=== PATIENT | female | born 1955 | race Two or more races ===

== ENCOUNTER → 2024-10-29 | Outpatient (CLI) | payer OTHER, MEDICAID, SELFPAY ==
--- NOTE | 2024-10-29 14:56 | XR_ITS ---
Examination: Duplex scan of the lower extremity, unilateral left Date and time of exam: October 29, 2024 1545 hours INDICATIONS: Patient fell 6 days ago with injury to the lower leg, lower leg pain and bruising and swelling post injury Technique: Duplex scan of the extremity veins using B-mode/grayscale imaging and Doppler spectral analysis and color flow Attention is directed to internal echogenicity, compression and augmentation involving these veins, color flow assessment, spectral analysis Findings: Major deep venous structures in the extremity demonstrate normal course and caliber. There is no evidence of deep vein thrombosis. Normal color flow and spectral analysis Impression: Negative for DVT.. Soft tissue mass anterior knee 8.0 x 1.3 x 7.5 cm most consistent with hematoma
--- NOTE | 2024-10-29 15:13 | XR_ITS ---
Examination: Tibia-Fibula, left , 2 views Technique: Tibia-fibula AP lateral 2 views Date and time of exam: October 29, 2024 1827 hours INDICATIONS: Patient fell October 22, 2024 with injury to the lower leg, lower leg pain. FINDINGS: Significant osteopenia. No fracture or dislocation No opaque foreign body IMPRESSION: No fracture or dislocation
--- NOTE | 2024-10-29 15:13 | XR_ITS ---
Examination: Knee, left , 3 views Technique: Knee AP, lateral, oblique 3 views Date and time of exam: October 29, 2024 1527 hours INDICATIONS: Patient fell October 22, 2024 with injury to the knee, knee pain. FINDINGS: Significant osteopenia Moderate narrowing medial joint space Small knee effusion No fracture or dislocation IMPRESSION: No fracture
== END | disposition home or self-care (01) ==
PROVIDERS: PCP Family Medicine; Referring Provider Internal Medicine; Visit Provider Internal Medicine
DX: S89.92XA Unspecified injury of left lower leg, initial encounter (principal); W19.XXXA Unspecified fall, initial encounter; R22.42 Localized swelling, mass and lump, left lower limb
CPT/HCPCS: 73562; 73590; 93971

== ENCOUNTER → 2024-11-19 | Outpatient (CLI) | payer OTHER, MEDICAID, SELFPAY ==
[2024-11-19 08:44] LABS: Basophils % (Auto) 0 % (0-2.5); Eosinophils # (Auto) 0.1 Thou/mm3 (0.0-0.5); Eosinophils % (Auto) 1 % (0-10); Hematocrit 40.9 % (36.0-46.0); Hemoglobin 13.8 g/dL (12.0-16.0); Immature Granulocytes % (Auto) 0 % (0-0); Immature Granulocytes Auto 0.04 Thou/mm3 (0.00-0.00); Lymphocytes # (Auto) 2.3 Thou/mm3 (1.0-4.8); Lymphocytes % (Auto) 23 % (10-50); Mean Corpuscular HGB Conc 33.7 g/dl (31.0-37.0); Mean Corpuscular Hemoglobin 28.6 pg (25.0-35.0); Mean Corpuscular Volume 85 fL (80-100); Monocytes # (Auto) 0.6 Thou/mm3 (0.0-0.8); Monocytes % (Auto) 6 % (0-12); Neutrophils # (Auto) 6.9 Thou/mm3 (1.8-7.7); Neutrophils % (Auto) 69 % (37-80); Nucleated Red Blood Cell % 0 /100 WBC (0); Platelet Count 303 Thou/mm3 (140-440); RDW Standard Deviation 42.7 fL (36.4-46.3); Red Blood Count 4.83 Miln/mm3 (4.00-5.20); White Blood Count 9.9 Thou/mm3 (3.6-11.0)
[2024-11-19 08:47] LABS: Carcinoembryonic Antigen 11.1 ng/mL (0.0-5.0)
[2024-11-19 09:02] LABS: Alanine Aminotransferase 52 U/L (10-49); Albumin, Serum 4.3 gm/dL (3.4-4.8); Alkaline Phosphatase 62 U/L (46-116); Anion Gap 7 (7-16); Aspartate Amino Transferase 27 U/L (0-34); BUN/Creatinine Ratio 50 Ratio (12-20); Bilirubin,Total 0.5 mg/dL (0.3-1.2); Blood Urea Nitrogen 25 mg/dL (9-23); Calcium 9.5 mg/dL (8.3-10.6); Calcium (Corrected) 9.5 mg/dL (8.5-10.1); Carbon Dioxide 30.9 mMol/L (20.0-31.0); Chloride 103 mMol/L (98-107); Creatinine (Component) 0.5 mg/dL (0.6-1.3); Globulin 2.2 gm/dL (2.3-3.5); Glucose 92 mg/dL (74-106); Osmolality,Calculated 285 (275-295); Potassium 4.2 mMol/L (3.4-5.1); Sodium 141 mMol/L (136-145); Total Protein 6.5 gm/dL (5.7-8.2); eGFR > 60 See Note
== END | disposition home or self-care (01) ==
LOC: SCTO 07:26
PROVIDERS: PCP Family Medicine; Referring Provider Nurse Practitioner Family; Visit Provider Nurse Practitioner Family
DX: C50.911 Malignant neoplasm of unspecified site of right female breast (principal); R53.83 Other fatigue
CPT/HCPCS: 36415; 80053; 82378; 85025

== ENCOUNTER 2024-11-26 08:54 | Outpatient (RCR) | payer OTHER, SELFPAY | END 2024-11-27 23:59 | disposition home or self-care (01) | LOC: SCTC 08:54 | PROVIDERS: PCP Family Medicine; Referring Provider Obstetrics & Gynecology; Visit Provider Nurse Practitioner Family | DX: Z08 Encounter for follow-up examination after completed treatment for malignant neoplasm (principal); Z85.3 Personal history of malignant neoplasm of breast | CPT/HCPCS: 99212; G0463 ==

== ENCOUNTER → 2024-12-11 | Outpatient (CLI) | payer OTHER, SELFPAY ==
[2024-12-11 10:17] LABS: Basophils % (Auto) 1 % (0-2.5); Eosinophils # (Auto) 0.2 Thou/mm3 (0.0-0.5); Eosinophils % (Auto) 4 % (0-10); Hematocrit 40.4 % (36.0-46.0); Hemoglobin 13.9 g/dL (12.0-16.0); Immature Granulocytes % (Auto) 0 % (0-0); Immature Granulocytes Auto 0.01 Thou/mm3 (0.00-0.00); Lymphocytes # (Auto) 1.5 Thou/mm3 (1.0-4.8); Lymphocytes % (Auto) 36 % (10-50); Mean Corpuscular HGB Conc 34.4 g/dl (31.0-37.0); Mean Corpuscular Volume 84 fL (80-100); Monocytes # (Auto) 0.4 Thou/mm3 (0.0-0.8); Monocytes % (Auto) 10 % (0-12); Neutrophils % (Auto) 49 % (37-80); Nucleated Red Blood Cell % 0 /100 WBC (0); Platelet Count 236 Thou/mm3 (140-440); RDW Standard Deviation 42.1 fL (36.4-46.3); White Blood Count 4.1 Thou/mm3 (3.6-11.0)
[2024-12-11 10:34] LABS: Alanine Aminotransferase 36 U/L (10-49); Albumin, Serum 4.2 gm/dL (3.4-4.8); Albumin/Globulin Ratio 1.9 (1.2-2.2); Alkaline Phosphatase 73 U/L (46-116); Anion Gap 5 (7-16); Aspartate Amino Transferase 30 U/L (0-34); BUN/Creatinine Ratio 20 Ratio (12-20); Bilirubin,Total 0.5 mg/dL (0.3-1.2); Blood Urea Nitrogen 12 mg/dL (9-23); Calcium 9.8 mg/dL (8.3-10.6); Calcium (Corrected) 9.8 mg/dL (8.5-10.1); Carbon Dioxide 30.8 mMol/L (20.0-31.0); Cardiac Risk Estimate 4.1 RATIO (3.7-5.6); Chloride 108 mMol/L (98-107); Cholesterol 190 mg/dL (132-200); Creatinine (Component) 0.6 mg/dL (0.6-1.3); Globulin 2.2 gm/dL (2.3-3.5); Glucose 97 mg/dL (74-106); HDL Cholesterol 46 mg/dL (40-60); LDL Cholesterol,Calculated 111 mg/dL (0-130); Osmolality,Calculated 286 (275-295); Potassium 4.2 mMol/L (3.4-5.1); Sodium 144 mMol/L (136-145); Total Protein 6.4 gm/dL (5.7-8.2); Triglycerides 166 mg/dL (30-150); eGFR > 60 See Note
[2024-12-11 10:50] LABS: CA 15-3 16.3 U/mL (<32.4); Carcinoembryonic Antigen 10.8 ng/mL (0.0-5.0)
== END | disposition home or self-care (01) ==
LOC: SCTO 08:50
PROVIDERS: PCP Family Medicine; Referring Provider Nurse Practitioner Family; Visit Provider Nurse Practitioner Family
DX: C50.911 Malignant neoplasm of unspecified site of right female breast (principal); E78.5 Hyperlipidemia, unspecified; R53.83 Other fatigue
CPT/HCPCS: 36415; 80053; 80061; 82378; 85025; 86300

== ENCOUNTER 2024-12-16 08:32 | Outpatient (RCR) | payer OTHER, SELFPAY | END 2024-12-25 23:59 | disposition home or self-care (01) | LOC: SCTC 08:32 | PROVIDERS: PCP Family Medicine; Referring Provider Family Medicine; Visit Provider Nurse Practitioner Family | DX: Z08 Encounter for follow-up examination after completed treatment for malignant neoplasm (principal); Z85.3 Personal history of malignant neoplasm of breast | CPT/HCPCS: 99212; G0463 ==

== ENCOUNTER → 2025-03-08 | Outpatient (CLI) | payer OTHER, MEDICAID, SELFPAY ==
[2025-03-08 08:36] LABS: Basophils % (Auto) 1 % (0-2.5); Eosinophils # (Auto) 0.2 Thou/mm3 (0.0-0.5); Eosinophils % (Auto) 4 % (0-10); Hematocrit 42.4 % (36.0-46.0); Hemoglobin 14.4 g/dL (12.0-16.0); Immature Granulocytes % (Auto) 0 % (0-0); Immature Granulocytes Auto 0.01 Thou/mm3 (0.00-0.00); Lymphocytes # (Auto) 1.4 Thou/mm3 (1.0-4.8); Lymphocytes % (Auto) 33 % (10-50); Mean Corpuscular Hemoglobin 28.6 pg (25.0-35.0); Mean Corpuscular Volume 84 fL (80-100); Monocytes # (Auto) 0.3 Thou/mm3 (0.0-0.8); Monocytes % (Auto) 8 % (0-12); Neutrophils # (Auto) 2.2 Thou/mm3 (1.8-7.7); Neutrophils % (Auto) 54 % (37-80); Nucleated Red Blood Cell % 0 /100 WBC (0); Platelet Count 239 Thou/mm3 (140-440); Red Blood Count 5.04 Miln/mm3 (4.00-5.20); White Blood Count 4.1 Thou/mm3 (3.6-11.0)
[2025-03-08 08:48] LABS: Alanine Aminotransferase 23 U/L (10-49); Albumin, Serum 4.4 gm/dL (3.4-4.8); Albumin/Globulin Ratio 1.7 (1.2-2.2); Alkaline Phosphatase 70 U/L (46-116); Anion Gap 5 (7-16); Aspartate Amino Transferase 23 U/L (0-34); BUN/Creatinine Ratio 17 Ratio (12-20); Bilirubin,Total 0.5 mg/dL (0.3-1.2); Blood Urea Nitrogen 10 mg/dL (9-23); Calcium 9.5 mg/dL (8.3-10.6); Calcium (Corrected) 9.5 mg/dL (8.5-10.1); Carbon Dioxide 30.2 mMol/L (20.0-31.0); Chloride 104 mMol/L (98-107); Creatinine (Component) 0.6 mg/dL (0.6-1.3); Globulin 2.6 gm/dL (2.3-3.5); Glucose 104 mg/dL (74-106); Osmolality,Calculated 276 (275-295); Potassium 3.8 mMol/L (3.4-5.1); Sodium 139 mMol/L (136-145); eGFR > 60 See Note
[2025-03-08 09:06] LABS: CA 15-3 20.3 U/mL (<32.4); Carcinoembryonic Antigen 13.3 ng/mL (0.0-5.0)
== END | disposition home or self-care (01) ==
LOC: SCTO 07:21
PROVIDERS: PCP Family Medicine; Referring Provider Nurse Practitioner Family; Visit Provider Nurse Practitioner Family
DX: C50.911 Malignant neoplasm of unspecified site of right female breast (principal); R53.83 Other fatigue
CPT/HCPCS: 36415; 80053; 82378; 85025; 86300

== ENCOUNTER 2025-03-15 15:37 | Outpatient (RCR) | payer OTHER, SELFPAY | END 2025-03-27 23:59 | disposition home or self-care (01) | LOC: SCTC 15:37 | PROVIDERS: PCP Family Medicine; Referring Provider Family Medicine; Visit Provider Nurse Practitioner Family | DX: R97.8 Other abnormal tumor markers (principal); N64.59 Other signs and symptoms in breast; Z90.11 Acquired absence of right breast and nipple; Z85.3 Personal history of malignant neoplasm of breast | CPT/HCPCS: 99212; G0463 ==

== ENCOUNTER → 2025-04-20 | Outpatient (CLI) | payer OTHER, SELFPAY ==
--- NOTE | 2025-04-20 10:15 | XR_ITS ---
EXAMINATION: PET/CT FUSION SKULL TO THIGH EXAM DATE AND TIME: April 20, 2025 1119 hours INDICATIONS: Diagnosis breast cancer, staging. CTDI:vol (mGy) 5.80 DLP: (mGycm) 530.11 PROCEDURE: 15 mCi FDG was administered intravenously To allow for distribution and uptake of radiotracer, the patient was allowed to rest quietly in a shielded room. Imaging was performed on an integrated 16-slice PET/CT scanner, with scanning from the skull base to the mid thigh. Serum blood glucose at the time of the injection was measured 101 mg/dL. CT scanning was performed without oral or intravenous contrast material. FINDINGS: Head and Neck: There is no katerin hypermetabolism in the neck. The visualized portions of the brain are normal in appearance on CT. Chest: Right mastectomy, no hypermetabolic breast chest wall or axillary lesions Abdomen and Pelvis: There is no katerin hypermetabolism in retroperitoneal or pelvic chains. The spleen is normal in size and FDG avidity. Musculoskeletal: Marrow uptake is within normal range. IMPRESSION: No findings of metastatic disease
== END | disposition home or self-care (01) ==
PROVIDERS: Referring Provider Nurse Practitioner Family; Visit Provider Nurse Practitioner Family
DX: C50.911 Malignant neoplasm of unspecified site of right female breast (principal)
CPT/HCPCS: 78815; A9552

== ENCOUNTER → 2025-04-24 | Outpatient (CLI) | payer OTHER, SELFPAY ==
[2025-04-15 09:38] LABS: Basophils % (Auto) 0 % (0-2.5); Eosinophils # (Auto) 0.1 Thou/mm3 (0.0-0.5); Eosinophils % (Auto) 2 % (0-10); Hematocrit 45.5 % (36.0-46.0); Immature Granulocytes % (Auto) 0 % (0-0); Immature Granulocytes Auto 0.01 Thou/mm3 (0.00-0.00); Lymphocytes # (Auto) 2.2 Thou/mm3 (1.0-4.8); Lymphocytes % (Auto) 29 % (10-50); Mean Corpuscular Hemoglobin 28.5 pg (25.0-35.0); Mean Corpuscular Volume 87 fL (80-100); Monocytes # (Auto) 0.8 Thou/mm3 (0.0-0.8); Monocytes % (Auto) 10 % (0-12); Neutrophils # (Auto) 4.4 Thou/mm3 (1.8-7.7); Neutrophils % (Auto) 58 % (37-80); Nucleated Red Blood Cell % 0 /100 WBC (0); Platelet Count 259 Thou/mm3 (140-440); RDW Standard Deviation 45.7 fL (36.4-46.3); Red Blood Count 5.26 Miln/mm3 (4.00-5.20); White Blood Count 7.6 Thou/mm3 (3.6-11.0)
[2025-04-15 09:51] LABS: Alanine Aminotransferase 41 U/L (10-49); Albumin/Globulin Ratio 1.7 (1.2-2.2); Alkaline Phosphatase 67 U/L (46-116); Anion Gap 6 (7-16); Aspartate Amino Transferase 28 U/L (0-34); BUN/Creatinine Ratio 17 Ratio (12-20); Bilirubin,Total 0.5 mg/dL (0.3-1.2); Blood Urea Nitrogen 12 mg/dL (9-23); Carbon Dioxide 31.3 mMol/L (20.0-31.0); Chloride 105 mMol/L (98-107); Creatinine (Component) 0.7 mg/dL (0.6-1.3); Globulin 2.3 gm/dL (2.3-3.5); Glucose 85 mg/dL (74-106); Osmolality,Calculated 281 (275-295); Potassium 4.4 mMol/L (3.4-5.1); Sodium 142 mMol/L (136-145); Total Protein 6.3 gm/dL (5.7-8.2); eGFR > 60 See Note
--- NOTE | 2025-04-24 12:00 | XR_ITS ---
Examination: MRI bilateral breast with and without contrast Date and time: April 24, 2025, 12 0 5:00 PM INDICATIONS: Diagnosis malignant neoplasm of unspecified site right female breast, right breast cancer diagnosis 2004 total mastectomy TECHNIQUE AND FINDINGS: Bilateral breast MRI images pre and post 14 cc gadolinium intravenous Scattered areas of fibroglandular density. 12 mm focus of architectural distortion medial right breast near the chest wall, Minimal background breast enhancement Right mastectomy. No chest wall mass. No pathologic lymphadenopathy IMPRESSION: BI-RADS Category 0: Incomplete: Need additional imaging evaluation 12 mm focus architectural distortion medial right breast near the chest wall. Recommend bilateral breast sonography follow-up including specific attention to the medial aspect right breast with the radiologist in attendance Also recommend attempt at Limited right diagnostic mammography follow-up
== END | disposition home or self-care (01) ==
LOC: SMRI 11:24
PROVIDERS: PCP Family Medicine; Referring Provider Nurse Practitioner Family; Visit Provider Nurse Practitioner Family
DX: R92.8 Other abnormal and inconclusive findings on diagnostic imaging of breast (principal); C50.911 Malignant neoplasm of unspecified site of right female breast
CPT/HCPCS: 36415; 77049; 80053; 85025; A9579; C8908

== ENCOUNTER 2025-05-04 11:03 | Outpatient (RCR) | payer OTHER, SELFPAY | END 2025-05-27 23:59 | disposition home or self-care (01) | LOC: SCTC 11:03 | PROVIDERS: PCP Family Medicine; Referring Provider Obstetrics & Gynecology; Visit Provider Nurse Practitioner Family | DX: Z08 Encounter for follow-up examination after completed treatment for malignant neoplasm (principal); Z85.3 Personal history of malignant neoplasm of breast; Z90.11 Acquired absence of right breast and nipple; R53.83 Other fatigue; Z86.0100 Personal history of colon polyps, unspecified | CPT/HCPCS: 99212; G0463 ==

== ENCOUNTER → 2025-05-17 | Outpatient (CLI) | payer OTHER, SELFPAY ==
[2025-05-17 12:06] LABS: Basophils # (Auto) 0.0 Thou/mm3 (0.0-0.2); Basophils % (Auto) 0 % (0-2.5); Eosinophils # (Auto) 0.1 Thou/mm3 (0.0-0.5); Eosinophils % (Auto) 3 % (0-10); Hematocrit 40.3 % (36.0-46.0); Hemoglobin 14.1 g/dL (12.0-16.0); Immature Granulocytes Auto 0.02 Thou/mm3 (0.00-0.00); Immature Reticulocyte Fraction 11.2 % (3.0-15.9); Lymphocytes # (Auto) 1.4 Thou/mm3 (1.0-4.8); Lymphocytes % (Auto) 29 % (10-50); Mean Corpuscular HGB Conc 35.0 g/dl (31.0-37.0); Mean Corpuscular Hemoglobin 29.2 pg (25.0-35.0); Mean Corpuscular Volume 83 fL (80-100); Monocytes # (Auto) 0.3 Thou/mm3 (0.0-0.8); Monocytes % (Auto) 7 % (0-12); Neutrophils # (Auto) 3.0 Thou/mm3 (1.8-7.7); Neutrophils % (Auto) 61 % (37-80); Nucleated Red Blood Cell # 0.00 Thou/mm3 (0.00-0.00); Nucleated Red Blood Cell % 0 /100 WBC (0); Platelet Count 221 Thou/mm3 (140-440); RDW Standard Deviation 43.8 fL (36.4-46.3); Red Blood Count 4.83 Miln/mm3 (4.00-5.20); Reticulocyte % (Auto) 2.7 % (0.5-1.5); Reticulocyte Absolute Auto 129.4 Biln/L (25.0-75.0); Reticulocyte Hgb Content 33.1 pg (28.0-35.0); White Blood Count 4.8 Thou/mm3 (3.6-11.0)
[2025-05-17 12:29] LABS: Alanine Aminotransferase 25 U/L (10-49); Albumin, Serum 4.1 gm/dL (3.4-4.8); Albumin/Globulin Ratio 1.7 (1.2-2.2); Alkaline Phosphatase 67 U/L (46-116); Anion Gap 9 (7-16); Aspartate Amino Transferase 27 U/L (0-34); BUN/Creatinine Ratio 17 Ratio (12-20); Bilirubin,Total 0.6 mg/dL (0.3-1.2); Blood Urea Nitrogen 10 mg/dL (9-23); Calcium 9.2 mg/dL (8.3-10.6); Calcium (Corrected) 9.2 mg/dL (8.5-10.1); Carbon Dioxide 30.3 mMol/L (20.0-31.0); Chloride 106 mMol/L (98-107); Creatinine (Component) 0.6 mg/dL (0.6-1.3); Globulin 2.4 gm/dL (2.3-3.5); Glucose 132 mg/dL (74-106); LDH (Lactate Dehydrogenase) 246 U/L (120-246); Osmolality,Calculated 289 (275-295); Potassium 4.2 mMol/L (3.4-5.1); Sodium 145 mMol/L (136-145); Total Protein 6.5 gm/dL (5.7-8.2); eGFR > 60 See Note
[2025-05-17 12:35] LABS: Ferritin 51 ng/mL (7.3-270.7); Iron 94 mcg/dL (50-170); Percent Iron Saturation 31 % (20-55); Total Iron Binding Capacity 297 mcg/dL (250-425); Unsaturated Iron Binding 203 (225-295)
[2025-05-17 12:37] LABS: Folate > 24.00 ng/mL (>5.38); Vitamin B12 649 pg/mL (211-911)
[2025-05-25 06:44] LABS: Haptoglobin* 61 mg/dL (43-212)
== END | disposition home or self-care (01) ==
PROVIDERS: PCP Family Medicine; Referring Provider Nurse Practitioner Family; Visit Provider Nurse Practitioner Family
DX: C50.911 Malignant neoplasm of unspecified site of right female breast (principal); R53.83 Other fatigue
CPT/HCPCS: 36415; 80053; 82607; 82728; 82746; 83010; 83540; 83550; 83615; 85025; 85046

== ENCOUNTER → 2025-05-26 | Outpatient (CLI) | payer OTHER, SELFPAY ==
--- NOTE | 2025-05-26 13:30 | XR_ITS ---
Examination: Breast ultrasound complete, bilateral Date and time of exam: May 26, 2025 1345 hours INDICATIONS: MRI examination April 24, 2025 12 mm focus architectural distortion medial right breast near the chest wall, personal history right breast cancer 2005 mastectomy 2005 Technique: Real-time grayscale ultrasonographic imaging bilateral breasts, including all 4 quadrants as well as nipple retroareolar and axillary regions. Findings: Sonographic images right breast 3:00 area of probable scar formation 5 x 6 x 6 mm Sonographic images left breast 3:00 cyst 4 x 3 mm IMPRESSION: BI-RADS Category 3: Probably benign findings One additional 6 month right breast sonogram follow-up is needed to document stability of 3:00 area of probable scar formation
--- NOTE | 2025-05-26 14:30 | XR_ITS ---
Examination: Diagnostic digital mammography, unilateral, left Computer aided detection 3-D breast Tomosynthesis, unilateral Date and time of exam: May 26, 2025 1337 hours Compared to mammograms dating to October 2019 Technique: Nonmagnified MLO, CC views of the left breast have been obtained, reconstructed from 3-D Tomosynthesis images. R2 computer aided detection program utilized for evaluation of suspicious masses and/or abnormal calcifications. 3-D Tomosynthesis images obtained. Findings: Scattered areas of fibroid rather density. Interval 3 mm nodule outer left breast on the CC view 5.7 cm from the nipple Impression: BI-RADS category 0: Incomplete: Need additional imaging evaluation 3 mm nodule outer left breast on the CC view, recommend follow-up spot tomographic views upper outer quadrant left breast
--- NOTE | 2025-05-26 15:10 | XR_ITS ---
Examination: Diagnostic digital mammography, unilateral, right Computer aided detection 3-D breast Tomosynthesis, unilateral Date and time of exam: May 26, 2025 at 1337 hours INDICATIONS: MRI breast 12 mm focus architectural distortion medial right breast Technique: Nonmagnified MLO, CC views of the right breast have been obtained, reconstructed from 3-D Tomosynthesis images. R2 computer aided detection program utilized for evaluation of suspicious masses and/or abnormal calcifications. 3-D Tomosynthesis images obtained. Findings: Scattered areas of fibroglandular density. Very subtle focus of architectural distortion medial right breast, 10 mm Impression: BI-RADS category 3: Probably benign findings One additional 6 month right mammogram follow-up is needed
== END | disposition home or self-care (01) ==
LOC: CDIM 12:58
PROVIDERS: PCP Family Medicine; Referring Provider Nurse Practitioner Family; Visit Provider Nurse Practitioner Family
DX: R92.333 Mammographic heterogeneous density, bilateral breasts (principal); N64.89 Other specified disorders of breast; N63.15 Unspecified lump in the right breast, overlapping quadrants; C50.911 Malignant neoplasm of unspecified site of right female breast
CPT/HCPCS: 76641; 77061; 77065; G0279

== ENCOUNTER 2025-07-05 11:41 | Outpatient (RCR) | payer OTHER, MEDICAID, SELFPAY | END 2025-07-27 23:59 | disposition home or self-care (01) | LOC: SCTC 11:41 | PROVIDERS: PCP Family Medicine; Referring Provider Family Medicine; Visit Provider Nurse Practitioner Family | DX: Z08 Encounter for follow-up examination after completed treatment for malignant neoplasm (principal); Z85.3 Personal history of malignant neoplasm of breast; Z90.11 Acquired absence of right breast and nipple; Z86.0100 Personal history of colon polyps, unspecified | CPT/HCPCS: 99212; G0463 ==